=== PATIENT | male | born 1965 | race Caucasian/White ===

== ENCOUNTER 2022-11-03 07:07 | Day surgery (SDC) | payer OTHER ==
[~2022-11-03] VITALS: Ht 167.6 cm; Wt 63.5 kg
[2022-11-03] MEDS ORDERED: fentaNYL citrate 0.05 MG/ML VIAL ONE (07:51)
[2022-11-03] MEDS ORDERED: LIDOCAINE 2% 100 MG/5 ML UJET TP ONE (07:51)
[2022-11-03] MEDS ORDERED: diphenhydrAMINE 50 MG/ML VIAL ONE (07:51)
[2022-11-03] MEDS ORDERED: MIDAZOLAM 5 MG/5 ML VIAL ONE (07:51)
[2022-11-03] MEDS ORDERED: MIDAZOLAM 2 MG/2 ML VIAL IVP ONE (09:15)
[2022-11-03] MEDS ORDERED: fentaNYL citrate 0.05 MG/ML VIAL IVP ONE (09:15)
== END 2022-11-03 09:05 | disposition home or self-care (01) ==
LOC: MOR 07:07 → MMU 07:07 → MOR 09:05
PROVIDERS: ATTEND Internal Medicine Gastroenterology
DX: Z12.11 Encounter for screening for malignant neoplasm of colon (principal); K57.30 Diverticulosis of large intestine without perforation or abscess without bleeding; E11.9 Type 2 diabetes mellitus without complications; Z79.84 Long term (current) use of oral hypoglycemic drugs; K21.9 Gastro-esophageal reflux disease without esophagitis; Z80.8 Family history of malignant neoplasm of other organs or systems; Z90.89 Acquired absence of other organs
CPT/HCPCS: 45378; J2250; J3010; J1200